=== PATIENT | male | born 1945 | race Caucasian/White ===

== ENCOUNTER 2019-07-07 11:08 | Emergency (ER) | payer OTHER ==
[~2019-07-07] VITALS: Ht 177.8 cm; Wt 154.2 kg
--- NOTE | ~2019-07-07 | EKG ---
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
[~2019-07-07 11:08] MED LIST: ASPIRIN ADULT L81 M1 PO; BACTRIM DS 8001 TA1 PO; CLOPIDOGREL75 MG PO; FISH OIL CONC1000 M1 PO; GLIPIZIDE XL5 M1 PO; HYDROCHLOROTHIA25 M1 PO; HYDROCODONE BIT1 T11 PO; KEFLEX500 MG PO; LANTUS100 U/ML SC; LISINOPRIL20 MG PO; LUBRICANT DRY E15 ML OP; METFORMIN1000 MG PO; NEURONTIN300 MG PO; NIACIN500 M5 PO; NITROSTAT0.4 MG SL; OMEGA 3 500 SO1 EACH PO; OMEPRAZOLE20 M2 PO; TOPROL XL50 M1 PO; VITAMIN D31000 I1 PO
[2019-07-07 13:07] LABS: BASO % 0.4 % (0.0-1.0); EOS # 0.2 10*3/uL (0.0-0.4); EOS % 1.6 % (1.0-4.0); HEMATOCRIT 43.3 % (42.0-52.0); HEMOGLOBIN 14.5 g/dl (14.0-18.0); LYMPH # 3.2 10*3/uL (1.3-4.4); LYMPH % 31.4 % (27.0-41.0); MEAN CELL VOLUME 92.7 fl (80.0-94.0); MEAN CORPUSCULAR HGB CONC 33.5 g/dl (33.0-37.0); MEAN PLATELET VOLUME 9.9 fl (9.6-12.3); MONO # 0.7 10*3/uL (0.1-1.0); NEUT % 59.4 % (47.0-73.0); PLATELET COUNT AUTOMATED 249 10*3/uL (130-400); RED BLOOD COUNT 4.67 10*6/uL (4.50-5.90); RED CELL DISTRI WIDTH 12.4 % (0-14.5); WHITE BLOOD COUNT 10.1 10*3/uL (4.8-10.8)
[2019-07-07 13:22] LABS: ACT PARTIAL THROMBO TIME 27.4 SECONDS (20.0-32.1)
[2019-07-07 13:29] LABS: ALBUMIN 3.4 gm/dl (3.1-4.5); ALKALINE PHOSPHATASE 59 U/L (45-117); BUN 14 mg/dl (7-24); CHLORIDE 101 mmol/L (98-107); CREATININE 0.94 mg/dL (0.70-1.30); LIPASE 83 U/L (73-393); POTASSIUM 3.9 mmol/L (3.5-5.1); SGOT/AST 45 IU/L (3-35); SGPT/ALT 71 U/L (12-78); SODIUM 135 mmol/L (136-145); TOTAL PROTEIN 7.4 gm/dL (6.4-8.2)
[2019-07-07 13:30] LABS: TROPONIN I < 0.015 ng/ml (<0.045)
[2019-07-07] MEDS ORDERED: PREDNISONE50 MG PO (14:41)
== END 2019-07-07 14:49 | disposition home or self-care (01) ==
LOC: ED 11:08
PROVIDERS: Emergency Medicine
DX: M65.841 Other synovitis and tenosynovitis, right hand (principal); I10 Essential (primary) hypertension; E11.9 Type 2 diabetes mellitus without complications; Z79.899 Other long term (current) drug therapy; Z79.82 Long term (current) use of aspirin; Z79.4 Long term (current) use of insulin; R79.1 Abnormal coagulation profile

== ENCOUNTER 2023-11-26 10:25 | Emergency (ER) | payer OTHER ==
[~2023-11-26] VITALS: Ht 177.8 cm; Wt 146.1 kg
[~2023-11-26 10:25] MED LIST changes: +PREDNISONE50 MG PO
[2023-11-26 11:34] LABS: BASO % 0.6 % (0.0-1.0); EOS # 0.2 10*3/uL (0.0-0.4); EOS % 2.6 % (1.0-4.0); HEMATOCRIT 41.1 % (42.0-52.0); LYMPH # 2.1 10*3/uL (1.3-4.4); LYMPH % 30.9 % (27.0-41.0); MEAN CELL VOLUME 91.5 fl (80.0-94.0); MEAN CORPUSCULAR HGB 29.8 pg (27.0-31.0); MEAN CORPUSCULAR HGB CONC 32.6 g/dl (33.0-37.0); MONO # 0.5 10*3/uL (0.1-1.0); MONO % 7.8 % (3.0-9.0); NEUT # 3.9 10*3/uL (2.3-7.9); NEUT % 57.9 % (47.0-73.0); PLATELET COUNT AUTOMATED 215 10*3/uL (130-400); RED BLOOD COUNT 4.49 10*6/uL (4.50-5.90); RED CELL DISTRI WIDTH 13.2 % (0-14.5); WHITE BLOOD COUNT 6.7 10*3/uL (4.8-10.8)
[2023-11-26 11:56] LABS: ALKALINE PHOSPHATASE 63 U/L (46-116); BUN 14 mg/dl (9-23); CHLORIDE 105 mmol/L (98-107); SGPT/ALT 27 U/L (5-49); TOTAL PROTEIN 6.4 gm/dL (6.0-8.0)
[2023-11-26] MEDS ORDERED: FUROSEMIDE 40 MG TAB PO ONE (12:45)
== END 2023-11-26 13:18 | disposition home or self-care (01) ==
LOC: ED 10:25
PROVIDERS: Internal Medicine
DX: I11.0 Hypertensive heart disease with heart failure (principal); I50.9 Heart failure, unspecified; I25.10 Atherosclerotic heart disease of native coronary artery without angina pectoris; E78.5 Hyperlipidemia, unspecified; E11.9 Type 2 diabetes mellitus without complications; E78.00 Pure hypercholesterolemia, unspecified; Z90.49 Acquired absence of other specified parts of digestive tract; Z98.890 Other specified postprocedural states